=== PATIENT | male | born 1980 | race Caucasian/White ===

== ENCOUNTER 2020-06-21 03:14 | Emergency (ER) | payer OTHER ==
[2020-06-21] MEDS ORDERED: Ketorolac 60 MG/2 ML SDV IM ONE (03:49)
[2020-06-21] MEDS ORDERED: Acetaminophen 325 MG Tab PO ONE (03:49)
[2020-06-21] MEDS ORDERED: predniSONE 20 MG Tab PO ONE (03:50)
--- NOTE | 2020-06-21 03:58 | EDM.PDOC ---
ED HPI GENERAL MEDICAL PROBLEM - General Chief Complaint: Neck Problem Stated Complaint: NECK PAIN Time Seen by Provider: 06/21/20 03:34 Source of Information: Reports: Patient, RN Notes Reviewed - History of Present Illness INITIAL COMMENTS - FREE TEXT/NARRATIVE: 39 yr old male comes in with 3 day hx of neck pain, posterior and L posterolateral. No known injury. Has not been recently ill. No fever, [place]. Pain radiates toward L shoulder but no further. Pain is worse to move head side to side and with neck rotation. Neck Pain Score (Numeric/FACES): 8 - Related Data Allergies Allergy/AdvReac Type Severity Reaction Status Date / Time No Known Allergies Allergy Verified 06/21/20 03:30 Home Meds: Home Meds Naproxen [Naprosyn] 500 mg PO Q12HR #14 tab 06/21/20 [Rx] Past Medical History - Past Health History Medical/Surgical History: Denies Medical/Surgical History Social & Family History - Tobacco Use Smoking Status *Q: Current Every Day Smoker Years of Tobacco use: 20 Packs/Tins Daily: 1 ED ROS GENERAL - Review of Systems Review Of Systems: See Below Constitutional: Denies: Fever, Chills HEENT: Denies: Sinus Problem, Throat Pain Respiratory: Denies: Shortness of Breath, Cough GI/Abdominal: Reports: No Symptoms Musculoskeletal: Reports: Neck Pain, Shoulder Pain. Denies: Arm Pain, Back Pain Neurological: Denies: Numbness, Tingling, Weakness ED EXAM, UPPER BACK/NECK PAIN - Physical Exam Exam: See Below General Appearance: Alert, Mild Distress Eye Exam: Bilateral Eye: PERRL Head Exam: Atraumatic Neck Exam: Other (very mild tenderness L post base, small soft moveable mass L post lat neck compatable with fatty tumer or subucaneous cyst, not tender, warm or erythematous). No: Tender Midline Cardiovascular/Respiratory: Regular Rate, Rhythm Extremities: Normal Inspection, Normal Range of Motion Neurologic: No Motor/Sensory Deficits Skin Exam: Normal Color, Warm/Dry Course - Vital Signs Last Recorded V/S: Last Vital Signs Temp 98.0 F 06/21/20 03:28 Pulse 86 06/21/20 03:28 Resp 16 06/21/20 03:28 BP 132/80 06/21/20 03:28 Pulse Ox 98 06/21/20 03:28 - Orders/Labs/Meds Meds: Medications Discontinued Medications Generic Name Dose Route Start Last Admin Trade Name Maggi PRN Reason Stop Dose Admin Acetaminophen 975 mg 06/21/20 03:49 06/21/20 03:57 Tylenol PO 06/21/20 03:50 975 mg NOW ONE Administration Ketorolac Tromethamine 60 mg 06/21/20 03:49 06/21/20 03:56 Toradol IM 06/21/20 03:50 60 mg ONETIME ONE Administration Prednisone 60 mg 06/21/20 03:50 06/21/20 03:57 Prednisone PO 06/21/20 03:51 60 mg ONETIME ONE Administration Departure - Departure Time of Disposition: 04:00 Disposition: Home, Self-Care 01 Condition: Fair Clinical Impression: Neck pain on left side - Discharge Information Prescriptions: Naproxen [Naprosyn] 500 mg PO Q12HR #14 tab Instructions: Neck Exercises Forms: ED Department Discharge Additional Instructions: You have been given torodol IM, tylenol and prednisone while here in the ED. Start Naprosyn 500 mg twice daily later this morning for pain and inflammation. Prescription has been sent electronic to the [facility]. You should also take tylenol 500 mg 3 times daily. You can alternate ice and heat to area of discomfort for further symptomatic relief as needed. Follow up at the [facility] if not much better within 5 to 7 days as expected. Physical Therapy would be the next level of treatment. l Sepsis Event Note (ED) - Evaluation Sepsis Screening Result: No Definite Risk - Focused Exam Vital Signs: Vital Signs Temp Pulse Resp BP Pulse Ox 06/21/20 03:28 98.0 F 86 16 132/80 98
== END 2020-06-21 04:01 | disposition home or self-care (01) ==
LOC: JD.ED 03:14
DX: M54.2 Cervicalgia (principal); F17.210 Nicotine dependence, cigarettes, uncomplicated
CPT/HCPCS: 96372; 99283; A9270; J1885; J7512